=== PATIENT | female | born 1995 | race Caucasian/White ===

== ENCOUNTER 2017-06-05 19:23 | Emergency (ER) | payer SELFPAY ==
[~2017-06-05] VITALS: Ht 154.9 cm; Wt 49.9 kg
[~2017-06-05 19:23] MED LIST: HYDR-3812 PO; NITR-65 PO; PHEN-639 PO; SULF1TAB35 PO
--- OUTSIDE RECORDS SUMMARY | 2017-06-05 19:29 | XMS REPORT ---
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 Info Not Available Non Drug Allergy Problems Problem Type Condition Code Onset Dates Condition Status Problem Anxiety state, unspecified 300.00 Active Assessment Pelvic pain R10.2 Active Problem Adjustment disorder with mixed anxiety and depressed mood 309.28 Active Assessment UTI (urinary tract infection) N39.0 Active Assessment History of UTI Z87.440 Active Assessment Follow up Z09 Active Medications Medication Code System Code Instructions Start Date End Date Status Dosage Ibuprofen [facility] [address]-73 800 MG Orally 2 times a day Sep 16, 2015 1 tablet Ciprofloxacin HCl [facility] [address]-47 250 MG Orally every 12 hrs January 06, 2016 January 16, 2016 1 tablet Procedures Procedure Coding System Code Date Office Visit, Est Pt., Level 3 CPT-4 60765 January 06, 2016 [facility] CPT-4 NOBLL January 06, 2016 URINALYSIS, AUTO, W/O SCOPE CPT-4 62239 January 06, 2016 Vital Signs Date/Time: January 06, 2016 Temperature 98.4 F Weight 107.2 lbs Height 61 in BMI 20.25 Index Blood Pressure Diastolic 72 mmHg Blood Pressure Systolic 107 mmHg Cardiac Monitoring Heart Rate 77 bpm BMIPercentile 33.72 % Wt Percentile 13.09 % Results No Known Results Summary Purpose [employer] Submission
--- OUTSIDE RECORDS SUMMARY | 2017-06-05 19:29 | XMS REPORT ---
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 Info Not Available Non Drug Allergy Problems Problem Type Condition Code Onset Dates Condition Status Problem Anxiety state, unspecified 300.00 Active Assessment Rib pain on right side R07.81 Active Problem Adjustment disorder with mixed anxiety and depressed mood 309.28 Active Medications Medication Code System Code Instructions Start Date End Date Status Dosage Ibuprofen [facility] [address]-00 800 MG Orally 2 times a day Sep 16, 2015 1 tablet Procedures Procedure Coding System Code Date Office Visit, Est Pt., Level 3 CPT-4 98283 Sep 16, 2015 Vital Signs Date/Time: Sep 16, 2015 Temperature 99.0 F Weight 110.4 lbs Height 61 in BMI 20.86 Index Blood Pressure Diastolic 70 mmHg Blood Pressure Systolic 108 mmHg Cardiac Monitoring Heart Rate 63 bpm BMIPercentile 43.05 % Wt Percentile 19.6 % Results No Known Results Summary Purpose [employer] Submission
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
--- OUTSIDE RECORDS SUMMARY | 2017-06-05 19:29 | XMS REPORT ---
Author Author JOSH RILEY [facility] [employer] Address Unknown Phone Unavailable Care Team Providers Care Configuration Analyst Name Role Phone JOSH RILEY CP Unavailable Allergies, Adverse Reactions, Alerts Substance Reaction Event Type N.K.D.A. Info Not Available Non Drug Allergy Problems Problem Type Condition Code Onset Dates Condition Status Problem Cough 786.2 Active Problem Need for other specified prophylactic measure V07.8 Active Problem Diarrhea 787.91 Active Problem examination or test, negative result V72.41 Active Assessment Other mucopurulent conjunctivitis, right eye H10.021 Active Problem Other general counseling and advice [...] Problem Nausea with vomiting 787.01 Active Medications Medication Code System Code Instructions Start Date End Date Status Dosage TobraDex [facility] [address]-73 0.3-0.1 % Ophthalmic every 6 hrs Jun 17, 2015 1 drop into affected eye Procedures Procedure Coding System Code Date Office Visit, Est Pt., Level 3 CPT-4 11011 Jun 17, 2015 Vital Signs Date/Time: Jun 17, 2015 Temperature 98.2 F Weight 113.1 lbs Height 61 in BMI 21.37 Index Blood Pressure Diastolic 60 mmHg Blood Pressure Systolic 110 mmHg Cardiac Monitoring Heart Rate 72 bpm BMIPercentile 50.7 % Wt Percentile 26.1 % Results No Known Results Summary Purpose [employer] Submission
--- OUTSIDE RECORDS SUMMARY | 2017-06-05 19:31 | XMS REPORT | Continuity of Care Document ---
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 09/27/2008 RAJOTTE RETIREMENT CONSULTANT, JANET A 078.10 Warts Unspecified All Sites 09/27/2008 RAJOTTE RETIREMENT CONSULTANT, JANET A 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 09/27/2008 RAJOTTE RETIREMENT CONSULTANT, JANET A 078.10 Warts Unspecified All Sites 09/27/2008 RAJOTTE RETIREMENT CONSULTANT, JANET A 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 09/27/2008 SANDRA RETIREMENT CONSULTANT, CHU R 078.10 Warts Unspecified All Sites 09/27/2008 SANDRA RETIREMENT CONSULTANT, CHU R 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 09/27/2008 ZARAGOZA DO, ALEJANDRA K 078.10 Warts Unspecified All Sites 09/27/2008 ZARAGOZA DO, ALEJANDRA K 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 09/27/2008 ZARAGOZA DO, ALEJANDRA K 078.10 Warts Unspecified All Sites 09/27/2008 ZARAGOZA DO, ALEJANDRA K 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 09/27/2008 ZARAGOZA DO, ALEJANDRA K 078.10 Warts Unspecified All Sites 09/27/2008 ZARAGOZA DO, ALEJANDRA K 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 09/27/2008 WILLIAN FLORES, KEYSHAWN Garcia 078.10 Warts Unspecified All Sites 09/27/2008 WILLIAN FLORES, KEYSHAWN Garcia 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 09/27/2008 WILLIAN FLORES, KEYSHAWN Garcia 078.10 Warts Unspecified All Sites 09/27/2008 KEYSHAWN DORSEY PHD 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 09/27/2008 LUISITOE BRODY JANET A 078.10 Warts Unspecified All Sites 09/27/2008 ESSENCE SKINNER JANET A 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 09/27/2008 KEYSHAWN DORSEY PHD 078.10 Warts Unspecified All Sites 09/27/2008 KEYSHAWN DORSEY PHD 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 09/27/2008 KEYSHAWN DORSEY PHD 078.10 Warts Unspecified All Sites 09/27/2008 KEYSHAWN DORSEY PHD 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 09/27/2008 ZARAGOZA DO, ALEJANDRA K 078.10 Warts Unspecified All Sites 09/27/2008 ZARAGOZA DO ALEJANDRA K 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 09/27/2008 KEYSHAWN DORSEY PHD 078.10 Warts Unspecified All Sites 09/27/2008 KEYSHAWN DORSEY PHD 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 09/27/2008 SANDRA SKINNER, CHU R 078.10 Warts Unspecified All Sites 09/27/2008 SANDRA SKINNER, CHU R 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 09/27/2008 KEYSHAWN DORSEY PHD 078.10 Warts Unspecified All Sites 09/27/2008 KEYSHAWN DORSEY PHD 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 09/27/2008 MARIBEL SKINNER, MIGUE R 078.10 Warts Unspecified All Sites 09/27/2008 MARIBEL SKINNER MIGUE R 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 10/29/2008 372.30 Conjunctivitis Unspecified 10/29/2008 LUISITOE RETIREMENT CONSULTANT, JANET A 372.30 Conjunctivitis Unspecified 10/29/2008 RAJGEORGEE RETIREMENT CONSULTANT, JANET A 372.30 Conjunctivitis Unspecified 10/29/2008 SANDRA BRODY, CHU R 372.30 Conjunctivitis Unspecified 10/29/2008 ZARAGOZA DO, ALEJANDRA K 372.30 Conjunctivitis Unspecified 10/29/2008 ZARAGOZA DO, ALEJANDRA K 372.30 Conjunctivitis Unspecified 10/29/2008 ZARAGOZA DO, ALEJANDRA K 372.30 Conjunctivitis Unspecified 10/29/2008 KEYSHAWN DORSEY PHD 372.30 Conjunctivitis Unspecified 10/29/2008 WILLIAN FLORES, KEYSHAWN Garcia 372.30 Conjunctivitis Unspecified 10/29/2008 ESSENCE SKINNER, JANET A 372.30 Conjunctivitis Unspecified 10/29/2008 WILLIAN FLORES, KEYSHAWN Garcia 372.30 Conjunctivitis Unspecified 10/29/2008 WILLIAN FLORES, KEYSHAWN Garcia 372.30 Conjunctivitis Unspecified 10/29/2008 NIK GARDUNO, ALEJANDRA K 372.30 Conjunctivitis Unspecified 10/29/2008 WILLIAN FLORES, KEYSHAWN Garcia 372.30 Conjunctivitis Unspecified 10/29/2008 SANDRA SKINNER CHU R 372.30 Conjunctivitis Unspecified 10/29/2008 WILLIAN FLORES, KEYSHAWN Garcia 372.30 Conjunctivitis Unspecified 10/29/2008 MIGUE LÓPEZ APRN R 372.30 Conjunctivitis Unspecified 03/19/2009 530.81 ESOPHAGEAL REFLUX 03/19/2009 789.00 Abdominal Pain 03/19/2009 LUISITOE RETIREMENT CONSULTANT, JANET A 530.81 ESOPHAGEAL REFLUX 03/19/2009 LUISITOE RETIREMENT CONSULTANT, JANET A 789.00 Abdominal Pain 03/19/2009 LUISITOE RETIREMENT CONSULTANT, JANET A 530.81 ESOPHAGEAL REFLUX 03/19/2009 DASIAOTTE RETIREMENT CONSULTANT, JANET A 789.00 Abdominal Pain 03/19/2009 SANDRA SKINNER, CHU R 530.81 ESOPHAGEAL REFLUX 03/19/2009 SANDRA SKINNER, CHU R 789.00 Abdominal Pain 03/19/2009 ZARAGOZA DO, ALEJANDRA K 530.81 ESOPHAGEAL REFLUX 03/19/2009 ZARAGOZA DO, ALEJANDRA K 789.00 Abdominal Pain 03/19/2009 ZARAGOZA DO, ALEJANDRA K 530.81 ESOPHAGEAL REFLUX 03/19/2009 ZARAGOZA DO, ALEJANDRA K 789.00 Abdominal Pain 03/19/2009 ZARAGOZA DO, ALEJANDRA K 530.81 ESOPHAGEAL REFLUX 03/19/2009 ZARAGOZA DO, ALEJANDRA K 789.00 Abdominal Pain 03/19/2009 WILLIAN FLORES, KEYSHAWN Garcia 530.81 ESOPHAGEAL REFLUX 03/19/2009 WILLIAN FLORES, KEYSHAWN Garcia 789.00 Abdominal Pain 03/19/2009 WILLIAN FLORES, KEYSHAWN Garcia 530.81 ESOPHAGEAL REFLUX 03/19/2009 WILLIAN FLORES, KEYSHAWN Garcia 789.00 Abdominal Pain 03/19/2009 ESSENCE SKINNER JANET A 530.81 ESOPHAGEAL REFLUX 03/19/2009 ESSENCE SKINNER, JANET A 789.00 Abdominal Pain 03/19/2009 WILLIAN PHD, KEYSHAWN Garcia 530.81 ESOPHAGEAL REFLUX 03/19/2009 WILLIAN PHD, KEYSHAWN Garcia 789.00 Abdominal Pain 03/19/2009 WILLIAN PHD, KEYSHAWN Garcia 530.81 ESOPHAGEAL REFLUX 03/19/2009 WILLIAN PHD, KEYSHAWN Garcia 789.00 Abdominal Pain 03/19/2009 ZARAGOZA DO, ALEJANDRA K 530.81 ESOPHAGEAL REFLUX 03/19/2009 ZARAGOZA DO, ALEJANDRA K 789.00 Abdominal Pain 03/19/2009 WILLIAN PHD, KEYSHAWN Garcia 530.81 ESOPHAGEAL REFLUX 03/19/2009 WILLIAN PHD, KEYSHAWN Garcia 789.00 Abdominal Pain 03/19/2009 SANDRA SKINNER, CHU R 530.81 ESOPHAGEAL REFLUX 03/19/2009 SANDRA SKINNER CHU R 789.00 Abdominal Pain 03/19/2009 WILLIAN PHD, KEYSHAWN Garcia 530.81 ESOPHAGEAL REFLUX 03/19/2009 WILLIAN PHD, KEYSHAWN Garcia 789.00 Abdominal Pain 03/19/2009 DESTIN LÓPEZ APRNRICIA R 530.81 ESOPHAGEAL REFLUX 03/19/2009 MARIBEL SKINNER MIGUE R 789.00 Abdominal Pain 03/25/2009 787.01 Nausea With Vomiting 03/25/2009 V05.3 Need For Vaccination Hepatitis A 03/25/2009 V05.4 Need For Vaccination Chickenpox (active) 03/25/2009 V05.8 Gardasil, Shingles, Other Specified Disease 03/25/2009 V06.5 Vaccines Prophylactic Need Against Td 03/25/2009 V20.2 Visit For: Well Child Visit 03/25/2009 AJNET LOWRY APRN 787.01 Nausea With Vomiting 03/25/2009 TONYA LOWRY APRNYL A V05.3 Need For Vaccination Hepatitis A 03/25/2009 TONYA LOWRY APRNYL A V05.4 Need For Vaccination Chickenpox (active ) 03/25/2009 TONYA LOWRY APRNYL A V05.8 Gardasil, Shingles, Other Specified Disease 03/25/2009 TONYA LOWRY APRNYL A V06.5 Vaccines Prophylactic Need Against Td 03/25/2009 TONYA LOWRY APRNYL A V20.2 Visit For: Well Child Visit 03/25/2009 RAJOTTE RETIREMENT CONSULTANT, JANET A 787.01 Nausea With Vomiting 03/25/2009 DASIAOTTE RETIREMENT CONSULTANT, JANET A V05.3 Need For Vaccination Hepatitis A 03/25/2009 DAISAOTTE RETIREMENT CONSULTANT, JANET A V05.4 Need For Vaccination Chickenpox (active ) 03/25/2009 DASIAOTTE RETIREMENT CONSULTANT, JANET A V05.8 Gardasil, Shingles, Other Specified Disease 03/25/2009 LUISITOE RETIREMENT CONSULTANT, JANET A V06.5 Vaccines Prophylactic Need Against Td 03/25/2009 DASIAOTTE RETIREMENT CONSULTANT, JANET A V20.2 Visit For: Well Child Visit 03/25/2009 SANDRA RETIREMENT CONSULTANT, CHU R 787.01 Nausea With Vomiting 03/25/2009 SANDRA RETIREMENT CONSULTANT, CHU R V05.3 Need For Vaccination Hepatitis A 03/25/2009 SANDRA RETIREMENT CONSULTANT, CHU R V05.4 Need For Vaccination Chickenpox (active) 03/25/2009 SANDRA RETIREMENT CONSULTANT, CHU R V05.8 Gardasil, Shingles, Other Specified Disease 03/25/2009 SANDRA RETIREMENT CONSULTANT, CHU R V06.5 Vaccines Prophylactic Need Against Td 03/25/2009 SANDRA RETIREMENT CONSULTANT, CHU R V20.2 Visit For: Well Child Visit 03/25/2009 ZULY ZARAGOZA DOA K 787.01 Nausea With Vomiting 03/25/2009 ZARAGOZA DO, ALEJANDRA K V05.3 Need For Vaccination Hepatitis A 03/25/2009 ZARAGOZA DO, ALEJANDRA K V05.4 Need For Vaccination Chickenpox (active) 03/25/2009 ZARAGOZA DO, ALEJANDRA K V05.8 Gardasil, Shingles, Other Specified Disease 03/25/2009 ZARAGOZA DO, ALEJANDRA K V06.5 Vaccines Prophylactic Need Against Td 03/25/2009 ZARAGOZA DO, ALEJANDRA K V20.2 Visit For: Well Child Visit 03/25/2009 NIK DO ALEJANDRA K 787.01 Nausea With Vomiting 03/25/2009 ZARAGOZA DO, ALEJANDRA K V05.3 Need For Vaccination Hepatitis A 03/25/2009 ZARAGOZA DO, ALEJANDRA K V05.4 Need For Vaccination Chickenpox (active) 03/25/2009 ZARAGOZA DO, ALEJANDRA K V05.8 Gardasil, Shingles, Other Specified Disease 03/25/2009 ZARAGOZA DO, ALEJANDRA K V06.5 Vaccines Prophylactic Need Against Td 03/25/2009 ZARAGOZA DO, ALEJANDRA K V20.2 Visit For: Well Child Visit 03/25/2009 ZARAGOZA DO, ALEJANDRA K 787.01 Nausea With Vomiting 03/25/2009 ZARAGOZA DO, ALEJANDRA K V05.3 Need For Vaccination Hepatitis A 03/25/2009 ZARAGOZA DO, ALEJANDRA K V05.4 Need For Vaccination Chickenpox (active) 03/25/2009 ZARAGOZA DO, ALEJANDRA K V05.8 Gardasil, Shingles, Other Specified Disease 03/25/2009 ZARAGOZA DO, ALEJANDRA K V06.5 Vaccines Prophylactic Need Against Td 03/25/2009 ZARAGOZA DO, ALEJANDRA K V20.2 Visit For: Well Child Visit 03/25/2009 KEYSHAWN DORSEY PHD 787.01 Nausea With Vomiting 03/25/2009 KEYSHAWN DORSEY PHD V05.3 Need For Vaccination Hepatitis A 03/25/2009 KEYSHAWN DORSEY PHD V05.4 Need For Vaccination Chickenpox (active ) 03/25/2009 KEYSHAWN DORSEY PHD V05.8 Gardasil, Shingles, Other Specified Disease 03/25/2009 KEYSHAWN DORSEY PHD V06.5 Vaccines Prophylactic Need Against Td 03/25/2009 KEYSHAWN DORSEY PHD V20.2 Visit For: Well Child Visit 03/25/2009 KEYSHAWN DORSEY PHD 787.01 Nausea With Vomiting 03/25/2009 KEYSHAWN DORSEY PHD V05.3 Need For Vaccination Hepatitis A 03/25/2009 KEYSHAWN DORSEY PHD V05.4 Need For Vaccination Chickenpox (active ) 03/25/2009 KEYSHAWN DORSEY PHD V05.8 Gardasil, Shingles, Other Specified Disease 03/25/2009 KEYSHAWN DORSEY PHD V06.5 Vaccines Prophylactic Need Against Td 03/25/2009 KEYSHAWN DORSEY PHD V20.2 Visit For: Well Child Visit 03/25/2009 JANET LOWRY APRN 787.01 Nausea With Vomiting 03/25/2009 JANET LOWRY APRN V05.3 Need For Vaccination Hepatitis A 03/25/2009 TONYA LOWRY APRNYL A V05.4 Need For Vaccination Chickenpox (active ) 03/25/2009 RAJOTTE RETIREMENT CONSULTANT, JANET A V05.8 Gardasil, Shingles, Other Specified Disease 03/25/2009 TONYA LOWRY APRNYL A V06.5 Vaccines Prophylactic Need Against Td 03/25/2009 TONYA LOWRY APRNYL A V20.2 Visit For: Well Child Visit 03/25/2009 KEYSHAWN DORSEY PHD 787.01 Nausea With Vomiting 03/25/2009 KEYSHAWN DORSEY PHD V05.3 Need For Vaccination Hepatitis A 03/25/2009 KEYSHAWN DORSEY PHD V05.4 Need For Vaccination Chickenpox (active ) 03/25/2009 KEYSHAWN DORSEY PHD V05.8 Gardasil, Shingles, Other Specified Disease 03/25/2009 KEYSHAWN DORSEY PHD V06.5 Vaccines Prophylactic Need Against Td 03/25/2009 KEYSHAWN DORSEY PHD V20.2 Visit For: Well Child Visit 03/25/2009 KEYSHAWN DORSEY PHD 787.01 Nausea With Vomiting 03/25/2009 KEYSHAWN DORSEY PHD V05.3 Need For Vaccination Hepatitis A 03/25/2009 KEYSHAWN DORSEY PHD V05.4 Need For Vaccination Chickenpox (active ) 03/25/2009 KEYSHAWN DORSEY PHD V05.8 Gardasil, Shingles, Other Specified Disease 03/25/2009 KEYSHAWN DORSEY PHD V06.5 Vaccines Prophylactic Need Against Td 03/25/2009 KEYSHAWN DORSEY PHD V20.2 Visit For: Well Child Visit 03/25/2009 ALEJANDRA ZARAGOZA DO 787.01 Nausea With Vomiting 03/25/2009 NIK GARDUNO ALEJANDRA K V05.3 Need For Vaccination Hepatitis A 03/25/2009 NIK GARDUNO ALEJANDRA K V05.4 Need For Vaccination Chickenpox (active) 03/25/2009 NIK GARDUNO ALEJANDRA K V05.8 Gardasil, Shingles, Other Specified Disease 03/25/2009 NIK GARDUNO ALEJANDRA K V06.5 Vaccines Prophylactic Need Against Td 03/25/2009 NIK GARDUNO ALEJANDRA K V20.2 Visit For: Well Child Visit 03/25/2009 KEYSHAWN DORSEY PHD 787.01 Nausea With Vomiting 03/25/2009 KEYSHAWN DORSEY PHD V05.3 Need For Vaccination Hepatitis A 03/25/2009 KEYSHAWN DORSEY PHD V05.4 Need For Vaccination Chickenpox (active ) 03/25/2009 KEYSHAWN DORSEY PHD V05.8 Gardasil, Shingles, Other Specified Disease 03/25/2009 KEYSHAWN DORSEY PHD V06.5 Vaccines Prophylactic Need Against Td 03/25/2009 KEYSHAWN DORSEY PHD V20.2 Visit For: Well Child Visit 03/25/2009 SANDRA RETIREMENT CONSULTANT, CHU R 787.01 Nausea With Vomiting 03/25/2009 SANDRA CORREAN, CHU R V05.3 Need For Vaccination Hepatitis A 03/25/2009 SANDRA CORREAN, CHU R V05.4 Need For Vaccination Chickenpox (active) 03/25/2009 SANDRA SKINNER CHU R V05.8 Gardasil, Shingles, Other Specified Disease 03/25/2009 SANDRA SKINNER CHU R V06.5 Vaccines Prophylactic Need Against Td 03/25/2009 SANDRA SKINNER CHU R V20.2 Visit For: Well Child Visit 03/25/2009 KEYSHAWN DORSEY PHD 787.01 Nausea With Vomiting 03/25/2009 KEYSHAWN DORSEY PHD V05.3 Need For Vaccination Hepatitis A 03/25/2009 KYESHAWN DORSEY PHD V05.4 Need For Vaccination Chickenpox (active ) 03/25/2009 KEYSHAWN DORSEY PHD V05.8 Gardasil, Shingles, Other Specified Disease 03/25/2009 KEYSHAWN DORSEY PHD V06.5 Vaccines Prophylactic Need Against Td 03/25/2009 KEYSHAWN DORSEY PHD V20.2 Visit For: Well Child Visit 03/25/2009 MIGUE LÓPEZ APRN R 787.01 Nausea With Vomiting 03/25/2009 MIGUE LÓPEZ APRN R V05.3 Need For Vaccination Hepatitis A 03/25/2009 DESTIN LÓPEZ APRNRICIA R V05.4 Need For Vaccination Chickenpox ( active) 03/25/2009 MIGUE LÓPEZ APRN R V05.8 Gardasil, Shingles, Other Specified Disease 03/25/2009 KIRILL LÓPEZ APRNIA R V06.5 Vaccines Prophylactic Need Against Td 03/25/2009 KIRILL LÓPEZ APRNIA R V20.2 Visit For: Well Child Visit 12/18/2009 692.6 Contact Dermatitis Due To Plants Poison Rosa Maria 12/18/2009 LUISITOE RETIREMENT CONSULTANT, JANET A 692.6 Contact Dermatitis Due To Plants Poison Rosa Maria 12/18/2009 LUISITOE RETIREMENT CONSULTANT, JANET A 692.6 Contact Dermatitis Due To Plants Poison Rosa Maria 12/18/2009 SANDRA CORREAN, CHU R 692.6 Contact Dermatitis Due To Plants Poison Rosa Maria 12/18/2009 ZARAGOZA DO, ALEJANDRA K 692.6 Contact Dermatitis Due To Plants Poison Rosa Maria 12/18/2009 ZARAGOZA DO, ALEJANDRA K 692.6 Contact Dermatitis Due To Plants Poison Rosa Maria 12/18/2009 ZARAGOZA DO, ALEJANDRA K 692.6 Contact Dermatitis Due To Plants Poison Rosa Maria 12/18/2009 WILLIAN FLORES, KEYSHAWN Garcia 692.6 Contact Dermatitis Due To Plants Poison Rosa Maria 12/18/2009 WILLIAN FLORES, KEYSHAWN Garcia 692.6 Contact Dermatitis Due To Plants Poison Rosa Maria 12/18/2009 ESSENCE SKINNER, JANET A 692.6 Contact Dermatitis Due To Plants Poison Rosa Maria 12/18/2009 WILLIAN FLORES, KEYSHAWN [employer] 692.6 Contact Dermatitis Due To Plants Poison Rosa Maria 12/18/2009 WILLIAN FLORES, KEYSHAWN Garcia 692.6 Contact Dermatitis Due To Plants Poison Rosa Maria 12/18/2009 ZARAGOZA DO, ALEJANDRA K 692.6 Contact Dermatitis Due To Plants Poison Rosa Maria 12/18/2009 WILLIAN FLORES, KEYSHAWN Garcia 692.6 Contact Dermatitis Due To Plants Poison Rosa Maria 12/18/2009 SANDRA CORREAN, CHU R 692.6 Contact Dermatitis Due To Plants Poison Rosa Maria 12/18/2009 WILLIAN FLORES, KEYSHAWN Garcia 692.6 Contact Dermatitis Due To Plants Poison Rosa Maria 12/18/2009 MIGUE LÓPEZ APRN R 692.6 Contact Dermatitis Due To Plants Poison Rosa Maria 06/05/2010 683 Acute Lymphadenitis 06/05/2010 LUISITOE RETIREMENT CONSULTANT, JANET A 683 Acute Lymphadenitis 06/05/2010 LUISITOE RETIREMENT CONSULTANT, JANET A 683 Acute Lymphadenitis 06/05/2010 SANDRA CORREAN, CHU R 683 Acute Lymphadenitis 06/05/2010 ZARAGOZA DO, ALEJANDRA K 683 Acute Lymphadenitis 06/05/2010 ZARAGOZA DO, ALEJANDRA K 683 Acute Lymphadenitis 06/05/2010 ZARAGOZA DO, ALEJANDRA K 683 Acute Lymphadenitis 06/05/2010 WILLIAN PHD, KEYSHAWN Garcia 683 Acute Lymphadenitis 06/05/2010 WILLIAN PHD, KEYSHAWN Garcia 683 Acute Lymphadenitis 06/05/2010 RAJOTTE RETIREMENT CONSULTANT, JANET A 683 Acute Lymphadenitis 06/05/2010 WILLIAN PHD, KEYSHAWN Garcia 683 Acute Lymphadenitis 06/05/2010 WILLIAN PHD, KEYSHAWN Garcia 683 Acute Lymphadenitis 06/05/2010 NIK DO, ALEJANDRA K 683 Acute Lymphadenitis 06/05/2010 WILLIAN PHD, KEYSHAWN Garcia 683 Acute Lymphadenitis 06/05/2010 SANDRA RETIREMENT CONSULTANT, CHU R 683 Acute Lymphadenitis 06/05/2010 WILLIAN PHD, KEYSHAWN Garcia 683 Acute Lymphadenitis 06/05/2010 LÓPEZ RETIREMENT CONSULTANT, MIGUE R 683 Acute Lymphadenitis 09/16/2010 724.2 Lumbago 09/16/2010 959.9 Other And Unspecified Injury To Unspecified Site 09/16/2010 RAJOTTE RETIREMENT CONSULTANT, JANET A 724.2 Lumbago 09/16/2010 RAJOTTE RETIREMENT CONSULTANT, JANET A 959.9 Other And Unspecified Injury To Unspecified Site 09/16/2010 RAJOTTE RETIREMENT CONSULTANT, JANET A 724.2 Lumbago 09/16/2010 RAJOTTE RETIREMENT CONSULTANT, JANET A 959.9 Other And Unspecified Injury To Unspecified Site 09/16/2010 SANDRA RETIREMENT CONSULTANT, CHU R 724.2 Lumbago 09/16/2010 SANDRA RETIREMENT CONSULTANT, CHU R 959.9 Other And Unspecified Injury To Unspecified Site 09/16/2010 ZARAGOZA DO, ALEJANDRA K 724.2 Lumbago 09/16/2010 ZARAGOZA DO, ALEJANDRA K 959.9 Other And Unspecified Injury To Unspecified Site 09/16/2010 ZARAGOZA DO, ALEJANDRA K 724.2 Lumbago 09/16/2010 ZARAGOZA DO, ALEJANDRA K 959.9 Other And Unspecified Injury To Unspecified Site 09/16/2010 ZARAGOZA DO, ALEJANDRA K 724.2 Lumbago 09/16/2010 ZARAGOZA DO, ALEJANDRA K 959.9 Other And Unspecified Injury To Unspecified Site 09/16/2010 WILLIAN FLORES, KEYSHAWN Garcia 724.2 Lumbago 09/16/2010 WILLIAN FLORES, KEYSHAWN Garcia 959.9 Other And Unspecified Injury To Unspecified Site 09/16/2010 KEYSHAWN DORSEY PHD 724.2 Lumbago 09/16/2010 KEYSHAWN DORSEY PHD 959.9 Other And Unspecified Injury To Unspecified Site 09/16/2010 RAJGEORGEE RETIREMENT CONSULTANT, JANET A 724.2 Lumbago 09/16/2010 RAJGEORGEE BRODY JANET A 959.9 Other And Unspecified Injury To Unspecified Site 09/16/2010 KEYSHAWN DORSEY PHD 724.2 Lumbago 09/16/2010 KEYSHAWN DORSEY PHD 959.9 Other And Unspecified Injury To Unspecified Site 09/16/2010 KEYSHAWN DORSEY PHD 724.2 Lumbago 09/16/2010 KEYSHAWN DORSEY PHD 959.9 Other And Unspecified Injury To Unspecified Site 09/16/2010 ZARAGOZA DO ALEJANDRA K 724.2 Lumbago 09/16/2010 ZARAGOZA DO ALEJANDRA K 959.9 Other And Unspecified Injury To Unspecified Site 09/16/2010 KEYSHAWN DORSEY PHD 724.2 Lumbago 09/16/2010 KEYSHAWN DORSEY PHD 959.9 Other And Unspecified Injury To Unspecified Site 09/16/2010 SANDRA SKINNER CHU R 724.2 Lumbago 09/16/2010 SANDRA SKINNER CHU R 959.9 Other And Unspecified Injury To Unspecified Site 09/16/2010 KEYSHAWN DORSEY PHD 724.2 Lumbago 09/16/2010 KEYSHAWN DORSEY PHD 959.9 Other And Unspecified Injury To Unspecified Site 09/16/2010 KIRILL LÓPEZ APRNIA R 724.2 Lumbago 09/16/2010 KIRILL LÓPEZ APRNIA R 959.9 Other And Unspecified Injury To Unspecified Site 03/05/2011 922.1 Contusion Of Chest Wall 03/05/2011 LUISITOE RETIREMENT CONSULTANT, JANET A 922.1 Contusion Of Chest Wall 03/05/2011 RAJGEORGEE RETIREMENT CONSULTANT, JANET A 922.1 Contusion Of Chest Wall 03/05/2011 SANDRA BRODY, CHU R 922.1 Contusion Of Chest Wall 03/05/2011 ZARAGOZA DO, ALEJANDRA K 922.1 Contusion Of Chest Wall 03/05/2011 ZARAGOZA DO, ALEJANDRA K 922.1 Contusion Of Chest Wall 03/05/2011 ZARAGOZA DO, ALEJANDRA K 922.1 Contusion Of Chest Wall 03/05/2011 KEYSHAWN DORSEY PHD 922.1 Contusion Of Chest Wall 03/05/2011 KEYSHAWN DORSEY PHD 922.1 Contusion Of Chest Wall 03/05/2011 TONYA LOWRY APRNYL A 922.1 Contusion Of Chest Wall 03/05/2011 KEYSHAWN DORSEY PHD 922.1 Contusion Of Chest Wall 03/05/2011 KEYSHAWN DORSEY PHD 922.1 Contusion Of Chest Wall 03/05/2011 ALEJANDRA ZARAGOZA DO K 922.1 Contusion Of Chest Wall 03/05/2011 KEYSHAWN DORSEY PHD 922.1 Contusion Of Chest Wall 03/05/2011 CHU FLORES APRN R 922.1 Contusion Of Chest Wall 03/05/2011 KEYSHAWN DORSEY PHD 922.1 Contusion Of Chest Wall 03/05/2011 MIGUE LÓPEZ APRN 922.1 Contusion Of Chest Wall 04/27/2011 V01.79 Contact With Or Exposure To Other Viral Diseases 04/27/2011 TONYA LOWRY APRNYL A V01.79 Contact With Or Exposure To Other Viral Diseases 04/27/2011 TONYA LOWRY APRNYL A V01.79 Contact With Or Exposure To Other Viral Diseases 04/27/2011 TITUS FLORES APRNINA R V01.79 Contact With Or Exposure To Other Viral Diseases 04/27/2011 ZARAGOZA DO, ALEJANDRA K V01.79 Contact With Or Exposure To Other Viral Diseases 04/27/2011 ZARAGOZA DO, ALEJANDRA K V01.79 Contact With Or Exposure To Other Viral Diseases 04/27/2011 ZARAGOZA DO, ALEJANDRA K V01.79 Contact With Or Exposure To Other Viral Diseases 04/27/2011 KEYSHAWN DORSEY PHD V01.79 Contact With Or Exposure To Other Viral Diseases 04/27/2011 KEYSHAWN DORSEY PHD V01.79 Contact With Or Exposure To Other Viral Diseases 04/27/2011 JANET LOWRY APRN A V01.79 Contact With Or Exposure To Other Viral Diseases 04/27/2011 KEYSHAWN DORSEY PHD V01.79 Contact With Or Exposure To Other Viral Diseases 04/27/2011 KEYSHAWN DORSEY PHD V01.79 Contact With Or Exposure To Other Viral Diseases 04/27/2011 ZARAGOZA DO ALEJANDRA K V01.79 Contact With Or Exposure To Other Viral Diseases 04/27/2011 KEYSHAWN DORSEY PHD V01.79 Contact With Or Exposure To Other Viral Diseases 04/27/2011 CHU FLORES APRN R V01.79 Contact With Or Exposure To Other Viral Diseases 04/27/2011 KEYSHAWN DORSEY PHD V01.79 Contact With Or Exposure To Other Viral Diseases 04/27/2011 MIGUE LÓPEZ APRN R V01.79 Contact With Or Exposure To Other Viral Diseases 07/05/2011 923.3 Contusion Of Finger 07/05/2011 TONYA LOWRY APRNYL A 923.3 Contusion Of Finger 07/05/2011 TONYA LOWRY APRNYL A 923.3 Contusion Of Finger 07/05/2011 TITUS FLORES APRNINA R 923.3 Contusion Of Finger 07/05/2011 ZARAGOZA DO, ALEJANDRA K 923.3 Contusion Of Finger 07/05/2011 ZARAGOZA DO, ALEJANDRA K 923.3 Contusion Of Finger 07/05/2011 ZARAGOZA DO, ALEJANDRA K 923.3 Contusion Of Finger 07/05/2011 KEYSHAWN DORSEY PHD 923.3 Contusion Of Finger 07/05/2011 KEYSHAWN DORSEY PHD 923.3 Contusion Of Finger 07/05/2011 TONYA LOWRY APRNYL A 923.3 Contusion Of Finger 07/05/2011 KEYSHAWN DORSEY PHD 923.3 Contusion Of Finger 07/05/2011 KEYSHAWN DORSEY PHD 923.3 Contusion Of Finger 07/05/2011 ZARAGOZA DO, ALEJANDRA K 923.3 Contusion Of Finger 07/05/2011 KEYSHAWN DORSEY PHD 923.3 Contusion Of Finger 07/05/2011 TITUS FLORES APRNINA R 923.3 Contusion Of Finger 07/05/2011 KEYSHAWN DORSEY PHD 923.3 Contusion Of Finger 07/05/2011 MIGUE LÓPEZ APRN R 923.3 Contusion Of Finger 07/26/2011 462 Pharyngitis Acute 07/26/2011 466.0 Bronchitis, Acute 07/26/2011 RAJOTTE RETIREMENT CONSULTANT, JANET A 462 Pharyngitis Acute 07/26/2011 RAJOTTE RETIREMENT CONSULTANT, JANET A 466.0 Bronchitis, Acute 07/26/2011 RAJOTTE RETIREMENT CONSULTANT, JANET A 462 Pharyngitis Acute 07/26/2011 RAJOTTE RETIREMENT CONSULTANT, JANET A 466.0 Bronchitis, Acute 07/26/2011 SANDRA RETIREMENT CONSULTANT, CHU R 462 Pharyngitis Acute 07/26/2011 SANDRA RETIREMENT CONSULTANT, CHU R 466.0 Bronchitis, Acute 07/26/2011 ZARAGOZA DO, ALEJANDRA K 462 Pharyngitis Acute 07/26/2011 ZARAGOZA DO, ALEJANDRA K 466.0 Bronchitis, Acute 07/26/2011 ZARAGOZA DO, ALEJANDRA K 462 Pharyngitis Acute 07/26/2011 ZARAGOZA DO, ALEJANDRA K 466.0 Bronchitis, Acute 07/26/2011 ZARAGOZA DO, ALEJANDRA K 462 Pharyngitis Acute 07/26/2011 ZARAGOZA DO, ALEJANDRA K 466.0 Bronchitis, Acute 07/26/2011 WILLIAN FLORES, KEYSHAWN Garcia 462 Pharyngitis Acute 07/26/2011 WILLIAN FLORES, KEYSHAWN Garcia 466.0 Bronchitis, Acute 07/26/2011 WILLIAN FLORES, KEYSHAWN Garcia 462 Pharyngitis Acute 07/26/2011 WILLIAN FLORES, KEYSHAWN Garcia 466.0 Bronchitis, Acute 07/26/2011 RAJOTTE RETIREMENT CONSULTANT, JANET A 462 Pharyngitis Acute 07/26/2011 RAJOTTE RETIREMENT CONSULTANT, JANET A 466.0 Bronchitis, Acute 07/26/2011 WILLIAN PHD, KEYSHAWN Garcia 462 Pharyngitis Acute 07/26/2011 WILLIAN PHD, KEYSHAWN Garcia 466.0 Bronchitis, Acute 07/26/2011 WILLIAN PHD, KEYSHAWN Garcia 462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
[2017-06-05 19:51] LABS: BILIRUBIN,URINE NEGATIVE (NEGATIVE); KETONES,URINE NEGATIVE (NEGATIVE); LEUKOCYTE ESTERASE ,URINE 1+ (NEGATIVE); NITRITE,URINE NEGATIVE (NEGATIVE); PH,URINE 6.5 (5-9); PROTEIN,URINE NEGATIVE (NEGATIVE); UROBILINOGEN,URINE NORMAL (NORMAL)
[2017-06-05 20:01] LABS: SQUAMOUS EPITHELIAL CELL,UR 25-50 /HPF
--- NOTE | 2017-06-05 20:09 | ED Abdominal Pain ---
General Chief Complaint: Abdominal/GI Problems Stated Complaint: AB PAIN Nursing Triage Note: Pt. advises abdominal pain that began earlier this evening and has since then not improved. She advises vomiting x 1. She denies nausea at this time. Sepsis Screen: No Definite Risk Source of Information: Patient Exam Limitations: No Limitations History of Present Illness Time Seen By Provider: 19:55 Initial Comments Here with report of lower abdominal pain bilaterally as well as some left upper quadrant abdominal pain. This is been intermittent over the last 3 months. Apparently she has had one episode of vomiting. Pain seems to come ago on its own and she is currently not having any pain at all. It does not seem to be better or worse with food. She reports no exacerbating or relieving factors other than time. Timing/Duration: Gone Now, Intermittent Severity/Quality: Moderate, Aching Location: LUQ, RLQ, LLQ Radiation: No Radiation Activities at Onset: None Modifying Factors: Improves With Resting Associated Symptoms: No Back Pain, No Chest Pain, No Fever/Chills, No Fatigue, Nausea/Vomiting, No Swelling/Mass in Abdomen, No Weakness Allergies and Home Medications Allergies Coded Allergies: NKANo Known Allergies (Verified Allergy, Unknown, 06/05/17) Home Medications Hydrocodone/Acetaminophen 1 Each Tablet, 1 EACH PO Q6H PRN for PAIN, #10 Prescribed by: DARYN MCGREGOR on 02/23/16 0238 Nitrofurantoin Monohyd/M-Cryst 100 Mg Capsule, 1 TAB PO BID, #14 Ref 0 Prescribed by: JONEL LUNDBERG on 06/22/15 1735 Phenazopyridine HCl 100 Mg Tablet, 100 MG PO Q8H PRN for SPASMS, #14 Ref 1 Prescribed by: JONEL LUNDBERG on 06/22/15 1735 Sulfamethoxazole/Trimethoprim 1 Each Tablet, 1 EACH PO BID, #6 Prescribed by: CONCHIS HOLCOMB on 12/23/15 1638 Review of Systems Constitutional: see HPI, No chills, No weakness EENTM: No Symptoms Reported Respiratory: No Symptoms Reported Cardiovascular: No Symptoms Reported Gastrointestinal: See HPI, Abdominal Pain, Denies Diarrhea, Nausea Genitourinary: No Symptoms Reported Musculoskeletal: no symptoms reported Skin: no symptoms reported Psychiatric/Neurological: No Symptoms Reported All Other Systems Reviewed Negative Unless Noted: Yes Past Eqzbrxv-Dwwcwn-Wjgjhc Hx Patient Social History Alcohol Use: Denies Use Recreational Drug Use: No Smoking Status: Never a Smoker Recent Foreign Travel: No Contact w/Someone Who Travel: No Recent Infectious Disease Expo: No Physical Abuse: No Sexual Abuse: No Surgeries History of Surgeries: Yes (broken right arm, URETHRAL STRETCH ) Surgeries: Orthopedic Respiratory History of Respiratory Disorde: No Cardiovascular History of Cardiac Disorders: No Neurological History of Neurological Disord: No Reproductive System : No Hx Reproductive Disorders: No Female Reproductive Disorders: Denies Genitourinary History of Genitourinary Disor: Yes (UTI's) Gastrointestinal History of Gastrointestinal Di: No Musculoskeletal History of Musculoskeletal Dis: No Endocrine History of Endocrine Disorders: No Cancer History of Cancer: No Psychosocial History of Psychiatric Problem: No Suicide Risk Score: 0 Blood Transfusions History of Blood Disorders: No Reviewed Nursing Assessment Reviewed/Agree w Nursing PMH: Yes Family Medical History Significant Family History: No Pertinent Family Hx Physical Exam Vital Signs VS - Last 72 Hours, by Label 06/05/17 19:41 Temp 98.6 Pulse 73 Resp 14 B/P (MAP) 112/86 Pulse Ox 98 O2 Delivery Room Air Capillary Refill : Less Than 3 Seconds General Appearance: WD/WN, no apparent distress HEENT: PERRL/EOMI, pharynx normal Neck: full range of motion, supple Respiratory: lungs clear, normal breath sounds Cardiovascular: regular rate, rhythm, no murmur Gastrointestinal: non tender, soft, abnormal bowel sounds (increase activity) Extremities: non-tender, normal inspection Back: normal inspection, no CVA tenderness, no vertebral tenderness Neurologic/Psychiatric: alert, normal mood/affect, oriented x 3 Skin: normal color, warm/dry Progress/Results/Core Measures Results/Orders Lab Results Laboratory Tests Test 06/05/17 19:34 06/05/17 20:26 Range/Units Urine Color YELLOW Urine Clarity CLEAR Urine pH 6.5 5-9 Urine Specific Allison 1.020 1.016-1.022 Urine Protein NEGATIVE NEGATIVE Urine Glucose (UA) NEGATIVE NEGATIVE Urine Ketones NEGATIVE NEGATIVE Urine Nitrite NEGATIVE NEGATIVE Urine Bilirubin NEGATIVE NEGATIVE Urine Urobilinogen NORMAL NORMAL MG/DL Urine Leukocyte Esterase 1+ H NEGATIVE Urine RBC (Auto) NEGATIVE NEGATIVE Urine RBC NONE /HPF Urine WBC 2-5 /HPF Urine Squamous Epithelial Cells 25-50 H /HPF Urine Crystals NONE /LPF Urine Bacteria NONE /HPF Urine Casts NONE /LPF Urine Mucus NEGATIVE /LPF Urine Culture Indicated NO White Blood Count 9.0 4.3-11.0 10^3/uL Red Blood Count 4.74 4.35-5.85 10^6/uL Hemoglobin 14.0 11.5-16.0 G/DL Hematocrit 42 35-52 % Mean Corpuscular Volume 89 80-99 FL Mean Corpuscular Hemoglobin 30 25-34 PG Mean Corpuscular Hemoglobin Concent 33 32-36 G/DL Red Cell Distribution Width 13.4 10.0-14.5 % Platelet Count 211 130-400 10^3/uL Mean Platelet Volume 10.3 7.4-10.4 FL Neutrophils (%) (Auto) 72 42-75 % Lymphocytes (%) (Auto) 20 12-44 % Monocytes (%) (Auto) 7 0-12 % Eosinophils (%) (Auto) 1 0-10 % Basophils (%) (Auto) 0 0-10 % Neutrophils # (Auto) 6.5 1.8-7.8 X 10^3 Lymphocytes # (Auto) 1.8 1.0-4.0 X 10^3 Monocytes # (Auto) 0.6 0.0-1.0 X 10^3 Eosinophils # (Auto) 0.1 0.0-0.3 10^3/uL Basophils # (Auto) 0.0 0.0-0.1 10^3/uL Sodium Level 138 135-145 MMOL/L Potassium Level 4.2 3.6-5.0 MMOL/L Chloride Level 106 98-107 MMOL/L Carbon Dioxide Level 19 L 21-32 MMOL/L Anion Gap 13 5-14 MMOL/L Blood Urea Nitrogen 14 7-18 MG/DL Creatinine 0.78 0.60-1.30 MG/DL Estimat Glomerular Filtration Rate > 60 BUN/Creatinine Ratio 18 Glucose Level 93 70-105 MG/DL Calcium Level 9.5 8.5-10.1 MG/DL Total Bilirubin 0.6 0.1-1.0 MG/DL Aspartate Amino Transf (AST/SGOT) 24 5-34 U/L Alanine Aminotransferase (ALT/SGPT) 15 0-55 U/L Alkaline Phosphatase 70 40-136 U/L Total Protein 8.1 6.4-8.2 GM/DL Albumin 4.4 3.2-4.5 GM/DL Amylase Level 28 25-125 U/L Lipase 19 8-78 U/L My Orders Orders - DENIZ ROQUE MD Ua Culture If Indicated (06/05/17 19:45) Urine Bedside (06/05/17 19:45) Amylase (06/05/17 20:04) Cbc With Automated Diff (06/05/17 20:04) Comprehensive Metabolic Panel (06/05/17 20:04) Lipase (06/05/17 20:04) Saline Lock/Iv-Start (06/05/17 20:04) Hyoscyamine Sl Tablet (Levsin Sl Tablet) (06/05/17 20:55) Medications Given in ED Current Medications Medications Dose Ordered Sig/Blake Route Start Time Stop Time Status Last Admin Dose Admin Hyoscyamine Sulfate 0.125 mg STK-MED ONCE .ROUTE 06/05/17 20:55 06/05/17 21:03 DC 06/05/17 21:04 0.125 MG Vital Signs/I&O Vital Sign - Last 12Hours 06/05/17 19:41 Temp 98.6 Pulse 73 Resp 14 B/P (MAP) 112/86 Pulse Ox 98 O2 Delivery Room Air Blood Pressure Mean: 95 Point of Care Testing Urine -Bedside: Negative Progress Note : Progress Note Seen and evaluated. IV, labs and UA ordered. Less than 0.125 mg by mouth. IV in anticipation of possible CT depending on labs. Unable to get IV but labs were drawn. Monitor patient. 2114: No acute findings. Patient remains pain free. Discharged home with return precautions. Patient verbalize understanding instructions and agreement with plan. Counseled on the need to have a primary care physician. Patient verbalize understanding. Departure Impression Impression: Primary Impression: Generalized abdominal pain Disposition: 01 HOME, SELF-CARE Condition: Improved Departure-Patient Inst. Decision time for Depature: 21:18 Referrals: NO,LOCAL PHYSICIAN (PCP/Family) Primary Care Physician Patient Instructions: Acute Abdomen (Belly Pain), Adult (DC), Irritable Bowel Syndrome (DC) Add. Discharge Instructions: All discharge instructions reviewed with patient and/or family. Voiced understanding. Take medications as directed. Follow up with your Dr. in a few days for recheck. Drink plenty of fluids. Eat a light diet. Return for worse pain, fever, vomiting, blood in your vomit or stool or other concerns as needed. Scripts Dicyclomine HCl (Dicyclomine HCl) 20 Mg Tablet 20 MG PO ACHS Y for ABDOMINAL PAIN, #30 TAB 0 Refills Prov: DENIZ ROQUE MD 06/05/17 DENIZ ROQUE MD Jun 05, 2017 20:09
[2017-06-05 20:33] LABS: BASOPHILS % (AUTO) 0 % (0-10); EOSINOPHILS # (AUTO) 0.1 10^3/uL (0.0-0.3); EOSINOPHILS % (AUTO) 1 % (0-10); LYMPHOCYTES # (AUTO) 1.8 X 10^3 (1.0-4.0); LYMPHOCYTES % (AUTO) 20 % (12-44); MEAN CORPUSCULAR HEMOGLOBIN 30 PG (25-34); MEAN CORPUSCULAR HGB CONC 33 G/DL (32-36); MEAN CORPUSCULAR VOLUME 89 FL (80-99); MEAN PLATELET VOLUME 10.3 FL (7.4-10.4); MONOCYTES # (AUTO) 0.6 X 10^3 (0.0-1.0); MONOCYTES % (AUTO) 7 % (0-12); NEUTROPHILS # (AUTO) 6.5 X 10^3 (1.8-7.8); NEUTROPHILS % (AUTO) 72 % (42-75); PLATELET COUNT 211 10^3/uL (130-400); RED BLOOD COUNT 4.74 10^6/uL (4.35-5.85); RED CELL DISTRIBUTION WIDTH 13.4 % (10.0-14.5)
[2017-06-05 20:54] LABS: ALANINE AMINOTRANSFERASE 15 U/L (0-55); ALBUMIN 4.4 GM/DL (3.2-4.5); AMYLASE 28 U/L (25-125); ANION GAP 13 MMOL/L (5-14); ASPARTATE AMINO TRANSFERASE 24 U/L (5-34); BILIRUBIN,TOTAL 0.6 MG/DL (0.1-1.0); BLOOD UREA NITROGEN 14 MG/DL (7-18); BUN/CREATININE RATIO 18; CALCIUM 9.5 MG/DL (8.5-10.1); CARBON DIOXIDE 19 MMOL/L (21-32); CHLORIDE 106 MMOL/L (98-107); CREATININE SERUM 0.78 MG/DL (0.60-1.30); GFR ESTIMATED > 60; GLUCOSE 93 MG/DL (70-105); LIPASE 19 U/L (8-78); POTASSIUM 4.2 MMOL/L (3.6-5.0); SODIUM 138 MMOL/L (135-145); TOTAL PROTEIN 8.1 GM/DL (6.4-8.2)
[2017-06-05] MEDS ORDERED: HYOSCYAMINE 0.125 MG (LEVSIN) TAB ONE (20:55)
[2017-06-05] MEDS ORDERED: DICY20TA10 PO (21:19)
[2017-06-05 21:47] VITALS: BP 112/86
== END 2017-06-05 21:46 | disposition home or self-care (01) ==
LOC: EDUNIT# 19:23 → ER 19:25
DX: R10.12 Left upper quadrant pain (principal); R10.31 Right lower quadrant pain; R10.32 Left lower quadrant pain; Z87.81 Personal history of (healed) traumatic fracture
CPT/HCPCS: 36415; 80053; 81000; 82150; 83690; 84703; 85025; 99283

== ENCOUNTER 2017-07-09 09:10 | Emergency (ER) | payer SELFPAY ==
[~2017-07-09] VITALS: Ht 154.9 cm; Wt 49.9 kg
[~2017-07-09 09:10] MED LIST changes: +DICY20TA10 PO
--- NOTE | 2017-07-09 09:33 | ED Integumentary General ---
General Chief Complaint: Skin/Wound Problems Stated Complaint: "BUBBLE" ON L NIPPLE DRAINING Source: patient Exam Limitations: no limitations History of Present Illness Time seen by provider: 09:28 Initial Comments This 22-year-old white female presents with a history of a persistent mass beneath her left nipple for the last 6 months. Mass became tender and the nipple began draining purulent material several days ago. The patient was seen at [facility] and placed on antibiotics. The name of the antibiotic is unclear. The patient was rescheduled for a mammogram but this has not occurred. Patient denies associated trauma to the left breast, fever, axillary adenopathy , associated cough or shortness of breath, similar episode in the past, other area of skin abscess or induration, or remarkable past medical history contributory to the present illness. Patient states that the left breast is moderately tender with dull ache without radiation. Allergies and Home Medications Allergies Coded Allergies: NKANo Known Allergies (Verified Allergy, Unknown, 06/05/17) Constitutional: No chills, No fever EENTM: No hearing loss Respiratory: No cough Cardiovascular: No chest pain Gastrointestinal: No abdominal pain, No nausea Genitourinary: no symptoms reported Musculoskeletal: no symptoms reported Skin: see HPI, other (. No drainage from the left nipple. Tender mass beneath the left nipple.) Psychiatric/Neurological: No Symptoms Reported Endocrine: No Symptoms Reported Hematologic/Lymphatic: No Symptoms Reported Past Hbcejyn-Svqizk-Pmqrlj Hx Patient Social History Alcohol Use: Occasionally Uses Recreational Drug Use: No Smoking Status: Never a Smoker Recent Foreign Travel: No Contact w/Someone Who Travel: No Surgeries History of Surgeries: Yes (broken right arm, URETHRAL STRETCH ) Surgeries: Orthopedic Respiratory History of Respiratory Disorde: No Cardiovascular History of Cardiac Disorders: No Neurological History of Neurological Disord: No Reproductive System Hx Reproductive Disorders: No Female Reproductive Disorders: Denies Genitourinary History of Genitourinary Disor: Yes (UTI's) Gastrointestinal History of Gastrointestinal Di: No Musculoskeletal History of Musculoskeletal Dis: No Endocrine History of Endocrine Disorders: No Cancer History of Cancer: No Psychosocial History of Psychiatric Problem: No Blood Transfusions History of Blood Disorders: No Reviewed Nursing Assessment Reviewed/Agree w Nursing PMH: Yes Family Medical History Significant Family History: No Pertinent Family Hx Physical Exam Vital Signs Capillary Refill : General Appearance: WD/WN, no apparent distress HEENT: normal ENT inspection Neck: supple, normal inspection Cardiovascular: regular rate, rhythm, no murmur Respiratory: lungs clear, no accessory muscle use Gastrointestinal: normal bowel sounds, non tender Back: normal inspection Extremities: normal range of motion Neurologic/Psychiatric: no motor/sensory deficits, alert Skin: other (there is a small amount of purulent drainage from left nipple which was cultured. There is mild tenderness to palpation of the left nipple. There is a slight fullness beneath the left nipple but no definite mass or cystic structure is identified. There is no diffuse mastitis present. There is no left axillary adenopathy.) Skin Problem Location: other (left nipple) Skin Problem Character: lesion Progress/Results/Core Measures Results/Orders My Orders Orders - ANA OLGUIN MD Wound Culture (07/09/17 09:26) Progress Note : Time: 09:33 Progress Note After the culture was obtained from the discharge from the left nipple a Neosporin gauze dressing was applied. A discussion was undertaken with the patient and her friend. It was recommended that a close follow-up for mammography, follow-up of the culture and sensitivity from left nipple, and initiation of Bactrim and Augmentin. ( The patient has been on her antibiotic from [facility] for the last 3-4 days without improvement). We called [facility] and the patient had been placed on clindamycin 300 mg twice a day. Also the patient with a prescription for outpatient mammography. I want her to continue with the Augmentin and the Bactrim until we have results from the culture of the left breast drainage and sensitivities. I recommended warm packs to the left breast. I asked that she return the emergency Department or [facility] if she had any further problems or questions. Departure Impression Impression: Primary Impression: Abscess Disposition: 01 HOME, SELF-CARE Condition: Improved Departure-Patient Inst. Decision time for Depature: 09:40 Referrals: [facility] (PCP/Family) Primary Care Physician Patient Instructions: Cellulitis (Skin Infection), Adult (DC) Add. Discharge Instructions: Stop the clindamycin. Initiate Bactrim and Augmentin as prescribed. Warm packs to the left breast. Present for mammogram scheduling on Tuesday morning. Return if any problems or questions. All discharge instructions reviewed with patient and/or family. Voiced understanding. ANA OLGUIN MD Jul 09, 2017 09:33
[2017-07-09] MEDS ORDERED: CLEOCIN (09:42)
[2017-07-09 09:44] VITALS: BP 102/64
== END 2017-07-09 09:44 | disposition home or self-care (01) ==
LOC: EDUNIT# 09:10 → ER 09:11
DX: N61.1 Abscess of the breast and nipple (principal); Z87.442 Personal history of urinary calculi; Z87.81 Personal history of (healed) traumatic fracture
CPT/HCPCS: 87070; 87205; 99282

== ENCOUNTER 2020-08-01 11:15 | Emergency (ER) | payer SELFPAY ==
[~2020-08-01] VITALS: Ht 157 cm; Wt 45.0 kg
[~2020-08-01 11:15] MED LIST changes: +ACHD5005 PO; +CLEOCIN; -HYDR-3812 PO
[2020-08-01 11:18] VITALS: BP 108/75
[2020-08-01] MEDS ORDERED: SULF1TAB35 PO (11:44)
[2020-08-01] MEDS ORDERED: CEPH500T PO (11:44)
[2020-08-01] MEDS ORDERED: FLUC150T PO (11:44)
--- NOTE | 2020-08-01 11:44 | ED Lower Extremity ---
General Chief Complaint: Lower Extremity Stated Complaint: R BIG TOE SWOLLEN Nursing Triage Note: PT CO OF R GREAT TOE PAIN, PT STATES WORKS AT [employer] AND STANDS IN WATER. TOE HAS REDNESS ON UNDER SIDE WITH SKIN REDDEND Nursing Sepsis Screen: No Definite Risk Source: patient Exam Limitations: no limitations History of Present Illness Date Seen by Provider: Aug 01, 2020 Time Seen by Provider: 11:40 Initial Comments To ER with redness and swelling over the medial aspect of the right great toe. 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 Onset: last week Severity: moderate Pain/Injury Location: right 1st toe Modifying Factors: Worse With Movement Allergies and Home Medications Allergies Coded Allergies: NKANo Known Allergies (Verified Allergy, Unknown, 06/05/17) Home Medications Cephalexin 500 Mg Tablet, 500 MG PO QID Prescribed by: CONCHIS HOLCOMB on 08/01/20 1144 Fluconazole 150 Mg Tablet, 150 MG PO DAILY Prescribed by: CONCHIS HOLCOMB on 08/01/20 1144 Sulfamethoxazole/Trimethoprim 1 Each Tablet, 1 EACH PO BID Prescribed by: CONCHIS HOLCOMB on 08/01/20 1144 Patient Home Medication List Home Medication List Reviewed: Yes Review of Systems Constitutional: see HPI EENTM: see HPI Respiratory: no symptoms reported Cardiovascular: no symptoms reported Genitourinary: no symptoms reported Musculoskeletal: see HPI Skin: see HPI Psychiatric/Neurological: No Symptoms Reported Past Goktcks-Ygemnc-Vopcvc Hx Patient Social History Alcohol Use: Occasionally Uses Recreational Drug Use: Yes (POT) Smoking Status: Current Everyday Smoker Type Used: Cigarettes Recent Foreign Travel: No Contact w/Someone Who Travel: No Recent Infectious Disease Expo: No Recent Hopitalizations: No Physical Abuse: No Sexual Abuse: No Past Medical History Surgeries: Yes (broken right arm, URETHRAL STRETCH ) Orthopedic Respiratory: No Cardiac: No Neurological: No Reproductive Disorders: No Female Reproductive Disorders: Denies Genitourinary: Yes (UTI's) Gastrointestinal: No Musculoskeletal: No Endocrine: No Cancer: No Psychosocial: No Blood Disorders: No Family Medical History No Pertinent Family Hx Physical Exam Vital Signs Vital Signs - First Documented 08/01/20 11:18 Temp 36.8 Pulse 63 Resp 18 B/P (MAP) 108/75 (86) Pulse Ox 98 Capillary Refill : Less Than 3 Seconds Height, Weight, BMI Height: 5'1.00" Weight: 110lbs. 8.0oz. [id number]; 18.00 BMI Method:Stated General Appearance: WD/WN, no apparent distress Respiratory: normal breath sounds, no respiratory distress, no accessory muscle use Hips: bilateral hip non-tender, bilateral hip normal inspection, bilateral hip normal range of motion Legs: bilateral leg non-tender, bilateral leg normal inspection, bilateral leg normal range of motion Knees: bilateral knee non-tender, bilateral knee normal inspection, bilateral knee normal range of motion Ankles: bilateral ankle non-tender, bilateral ankle normal inspection, bilateral ankle normal range of motion Feet: right foot other (There is some erythema as well as maceration to the plantar surface of the medial aspect of the right great toe. The medial aspect of the distal toenail of the great toe on the right is also becoming ingrown. She is not real enthusiastic about removing the that section of the toenail yet so we will try antibiotics first.) Neurologic/Psychiatric: alert, normal mood/affect, oriented x 3 Skin: normal color, warm/dry Progress/Results/Core Measures Results/Orders Vital Signs/I&O 08/01/20 11:18 Temp 36.8 Pulse 63 Resp 18 B/P (MAP) 108/75 (86) Pulse Ox 98 Blood Pressure Mean: 86 Departure Impression Primary Impression: Ingrown toenail Additional Impression: Soft tissue infection Disposition: 01 HOME, SELF-CARE Condition: Stable Departure-Patient Inst. Decision time for Depature: 11:42 Referrals: [facility] (PCP/Family) Primary Care Physician Patient Instructions: Ingrown Toenail, Wound Infection Add. Discharge Instructions: 1. Is very important to keep this clean and dry. You can shower and let water run over it but then make sure it is dry. Wear the special shoe given to you in the emergency room for 1 week. Do not let any water come into contact with this while at work. If this antibiotic fails to improve your symptoms then return in about 1 week (return to ER sooner than that if it becomes worse) and we will need to remove about 1/4 inch of the inside of that toenail. Follow-up with your doctor next week for recheck. I sent in 2 medications both of them antibio tics. 1 is cephalexin and the other is trimethoprim/sulfamethoxazole. I sent in a third medication called Diflucan (fluconazole) in case these antibiotics cause a yeast infection. Take 1 of these pills daily for 2 days if you develop a yeast infection All discharge instructions reviewed with patient and/or family. Voiced understanding. Scripts Fluconazole (Diflucan) 150 Mg Tablet 150 MG PO DAILY, #2 TAB Prov: CONCHIS HOLCOMB APRN 08/01/20 Sulfamethoxazole/Trimethoprim (Bactrim Ds Tablet) 1 Each Tablet 1 EACH PO BID, #14 TAB Prov: CONCHIS HOLCOMB APRN 08/01/20 Cephalexin (Cephalexin) 500 Mg Tablet 500 MG PO QID, #28 TAB 0 Refills Prov: CONCHIS HOLCOMB APRN 08/01/20 CONCHIS HOLCOMB APRN Aug 01, 2020 11:44
== END 2020-08-01 11:59 | disposition home or self-care (01) ==
LOC: EDUNIT# 11:15 → ER 11:17
DX: L60.0 Ingrowing nail (principal); L08.9 Local infection of the skin and subcutaneous tissue, unspecified; F17.210 Nicotine dependence, cigarettes, uncomplicated
CPT/HCPCS: 99283

== ENCOUNTER 2020-08-09 16:22 | Emergency (ER) | payer SELFPAY ==
[~2020-08-09] VITALS: Ht 157 cm; Wt 45.0 kg
[~2020-08-09 16:22] MED LIST changes: +CEPH500T PO; +FLUC150T PO
--- NOTE | 2020-08-09 16:30 | NUR ---
NOTIFIED OF BUSY ER WITH LONG WAIT TO SEE A PROVIDER.
--- NOTE | 2020-08-09 17:37 | NUR ---
RESTING IN BED. NOTIFIED AGAIN OF BUSY ER AND THAT A PROVIDER WOULD BE IN WHEN AVAILABLE.
--- NOTE | 2020-08-09 18:58 | NUR ---
REPORT GIVEN TO LINDA
[2020-08-09] MEDS ORDERED: TRIM/SULFAMETH 160/800 (SEPTRA DS) TAB PO ONE ×2 (19:00→19:10)
[2020-08-09] MEDS ORDERED: SULF1TAB35 PO (19:02)
[2020-08-09] MEDS ORDERED: FLUC150T PO (19:02)
--- NOTE | 2020-08-09 19:06 | ED Lower Extremity ---
General Chief Complaint: Lower Extremity Stated Complaint: R FOOT PAIN Nursing Triage Note: ARRIVED VIA AMB TO [facility]. STATES SHE WAS HERE LAST WEEK FOR A RIGHT GREAT INGROWN TOE NAIL THAT IS NOT GETTING BETTER. Nursing Sepsis Screen: No Definite Risk Source: patient Exam Limitations: no limitations History of Present Illness Date Seen by Provider: Aug 09, 2020 Time Seen by Provider: 18:50 Initial Comments This 25-year-old young lady presents to the emergency room with complaints of pain, erythema, and tenderness to the right great toe. She was seen here previously for the same thing and prescribed a combination of Keflex, Bactrim, and a Diflucan. Symptoms have improved but are still present. She comes today inquiring about toenail removal. 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 Allergies and Home Medications Allergies Coded Allergies: ANDREWMarita Known Allergies (Verified Allergy, Unknown, 06/05/17) Home Medications Cephalexin 500 Mg Tablet, 500 MG PO QID Prescribed by: CONCHIS HOLCOMB on 08/01/20 1144 Fluconazole 150 Mg Tablet, 150 MG PO DAILY Prescribed by: CONCHIS HOLCOMB on 08/01/20 1144 Fluconazole 150 Mg Tablet, 150 MG PO UD Take 1 tablet now. Repeat in 3 or 4 days. Prescribed by: DARYN MCGREGOR on 08/09/20 190 Sulfamethoxazole/Trimethoprim 1 Each Tablet, 1 EACH PO BID Prescribed by: CONCHIS HOLCOMB on 08/01/20 1144 Sulfamethoxazole/Trimethoprim 1 Each Tablet, 1 EACH PO BID Prescribed by: DARYN MCGREGOR on 08/09/20 190 Patient Home Medication List Home Medication List Reviewed: Yes Review of Systems Constitutional: no symptoms reported : No Musculoskeletal: no symptoms reported Skin: see HPI Psychiatric/Neurological: No Symptoms Reported Past Xujbjup-Liiutl-Bmyaao Hx Past Med/Social Hx: Reviewed Nursing Past Med/Soc Hx Patient Social History Alcohol Use: Occasionally Uses Recreational Drug Use: Yes (POT) Smoking Status: Current Everyday Smoker Type Used: Cigarettes Recent Foreign Travel: No Contact w/Someone Who Travel: No Recent Infectious Disease Expo: No Recent Hopitalizations: No Past Medical History Surgeries: Yes (broken right arm, URETHRAL STRETCH ) Orthopedic Respiratory: No Cardiac: No Neurological: No Reproductive Disorders: No Female Reproductive Disorders: Denies Genitourinary: Yes (UTI's) Gastrointestinal: No Musculoskeletal: No Endocrine: No Cancer: No Psychosocial: No Blood Disorders: No Family Medical History No Pertinent Family Hx Physical Exam Vital Signs Vital Signs - First Documented 08/09/20 16:30 Temp 36.9 Pulse 88 Resp 16 B/P (MAP) 132/79 (96) Pulse Ox 99 O2 Delivery Room Air Capillary Refill : Less Than 3 Seconds Height, Weight, BMI Height: 5'1.00" Weight: 110lbs. 8.0oz. [id number]; 18.00 BMI Method:Stated General Appearance: WD/WN, no apparent distress HEENT: normal ENT inspection Cardiovascular: regular rate, rhythm, no edema, no murmur Respiratory: lungs clear, normal breath sounds, no respiratory distress Feet: right foot other (Right great toe is mildly erythematous and tender. Skin has a wrinkled appearance as though swelling has decreased significantly. There is a thick callus layer of skin over much of the toe that is cracking. There is no fluctuance to suggest abscess. There is Minimal skin tissue overlying the toe edge. No purulent drainage.) Progress/Results/Core Measures Results/Orders My Orders Orders - DARYN ALMANZA MD Sulfamethoxazole/Trimet Ds Tab (Bactrim (08/09/20 19:00) Sulfamethoxazole/Trimet Ds Tab (Bactrim (08/09/20 19:10) Vital Signs/I&O 08/09/20 08/09/20 16:30 19:14 Temp 36.9 Pulse 88 88 Resp 16 17 B/P (MAP) 132/79 (96) 119/69 Pulse Ox 99 100 O2 Delivery Room Air Room Air Blood Pressure Mean: 96 Progress Progress Note : Progress Note The toe appears to be improving. We added a week more of antibiotic therapy. I described performing Epson salt soaks. Diflucan was added as well to cover for concurrent possible fungal infection. See discharge instructions. Departure Impression Primary Impression: Cellulitis of great toe, left Additional Impression: Ingrown toenail Disposition: HOME, SELF-CARE Condition: Improved Departure-Patient Inst. Referrals: [facility] (PCP/Family) Primary Care Physician Patient Instructions: Cellulitis (Skin Infection), Adult (DC), Ingrown Toenail (DC) Add. Discharge Instructions: Complete your antibiotics as prescribed. You may do Epson salt soaks on your foot 1 or 2 times a day for about 10 or 15 minutes until the nail grows out past the fold of the skin. Do not trim your toenail past the fold of the skin as this will further perpetuate ingrown toenails. Ensure you wear shoes with plenty of room in the toe so that pressure is not placed on the tip or edge of the toe. If you are still having significant trouble after an additional week of treatment, follow-up with your primary care office for a possible partial to[place] removal. Your skin appears to be healing from infection. The callused skin will eventually slough off. Other than Epson salt soaks, keep your feet as dry as possible and open to air if possible. Change socks often. You may even bring extra pairs of socks to work with you and change socks during breaks. Return to the emergency room or your primary care office if you have worsening symptoms. All discharge instructions reviewed with patient and/or family. Voiced understanding. Scripts Fluconazole (Diflucan) 150 Mg Tablet 150 MG PO UD, #2 TAB Take 1 tablet now. Repeat in 3 or 4 days. Prov: DARYN ALMANZA MD 08/09/20 Sulfamethoxazole/Trimethoprim (Bactrim Ds Tablet) 1 Each Tablet 1 EACH PO BID, #14 TAB Prov: DARYN ALMANZA MD 08/09/20 Work/School Note: Work Release Form Date Seen in the Emergency Department: Aug 09, 2020 Return to Work: Aug 10, 2020 Restrictions: No Restrictions DARYN ALMANZA MD Aug 09, 2020 19:06
[2020-08-09 19:14] VITALS: BP 119/69
== END 2020-08-09 19:14 | disposition home or self-care (01) ==
LOC: EDUNIT# 16:22 → ER 16:23
DX: L03.031 Cellulitis of right toe (principal); L60.0 Ingrowing nail; F17.210 Nicotine dependence, cigarettes, uncomplicated
CPT/HCPCS: 99283

== ENCOUNTER 2022-02-10 14:09 | Emergency (ER) | payer SELFPAY ==
[~2022-02-10] VITALS: Ht 157.5 cm; Wt 44.0 kg
[~2022-02-10 14:09] MED LIST changes: +DICY20TA PO; -DICY20TA10 PO; -SULF1TAB35 PO; +SULF1TAB38 PO
--- NOTE | 2022-02-10 14:59 | ED Integumentary General ---
General Chief Complaint: Bite-Animal/Human/Insect Stated Complaint: R HAND DOG BITE Nursing Triage Note: PT TO ED BY POV WITH C/O DOG BITE. PT REPORTS SHE BROKE UP A FIGHT BETWEEN HER TWO HUSKIES AND ONE BIT HER R HAND. REPORTS MINIMAL PAIN AT THIS TIME. Source: patient Exam Limitations: no limitations History of Present Illness Date Seen by Provider: Feb 10, 2022 Time Seen by Provider: 14:48 Initial Comments This is a well-appearing 26-year-old female who presented to the ER via POV with complaints of dog bite to her right hand. States that she has 2 Siberian husky's and they were fighting, she reached down to pull them apart and she was bit one of her dogs. States that her dogs are up-to-date on immunizations and rabies. Unknown last tetanus. Allergies and Home Medications Allergies Coded Allergies: ANDREWANo Known Allergies (Verified Allergy, Unknown, 06/05/17) Patient Home Medication List Cephalexin (Cephalexin) 500 Mg Tablet, 500 MG PO QID Prescribed by: CONCHIS HOLCOMB on 08/01/20 1144 Fluconazole (Diflucan) 150 Mg Tablet, 150 MG PO DAILY Prescribed by: CONCHIS HOLCOMB on 08/01/20 1144 Fluconazole (Diflucan) 150 Mg Tablet, 150 MG PO UD Prescribed by: DARYN MCGREGOR on 08/09/201901 Sulfamethoxazole/Trimethoprim (Bactrim Ds Tablet) 1 Each Tablet, 1 EACH PO BID Prescribed by: CONCHIS HOLCOMB on 08/01/20 1144 Sulfamethoxazole/Trimethoprim (Bactrim Ds Tablet) 1 Each Tablet, 1 EACH PO BID Prescribed by: DARYN MCGREGOR on 08/09/201901 Past Mspkjgz-Wzbflq-Cignnh Hx Patient Social History Tobacco Use?: Yes Tobacco type used: Cigarettes Smoking Status: Current Everyday Smoker Substance use?: Yes Substance type: Marijuana Substance frequency: Daily Alcohol Use?: Yes Alcohol type: Hard Liquor Alcohol Frequency: Daily Pt feels they are or have been: No Immunizations Up To Date Influenza Vaccine Up-to-Date: No; Not Current First/Initial COVID19 Vaccinat: N/A Past Medical History Surgeries: Yes (broken right arm, URETHRAL STRETCH ) Orthopedic Respiratory: No Cardiac: No Neurological: No Reproductive Disorders: No Female Reproductive Disorders: Denies Genitourinary: Yes (UTI's) Gastrointestinal: No Musculoskeletal: No Endocrine: No Cancer: No Psychosocial: No Blood Disorders: No Family Medical History No Pertinent Family Hx Physical Exam Vital Signs Vital Signs - First Documented 02/10/22 14:22 Temp 37.0 Pulse 87 Resp 16 B/P (MAP) 120/84 (96) Pulse Ox 99 O2 Delivery Room Air Capillary Refill : Less Than 3 Seconds Progress/Results/Core Measures Results/Orders My Orders Orders - BUSHRA PENA [employer] Dipht,Pertuss(Acell),Tet Adult (Boostrix (02/10/22 15:00) Lidocaine 1% Inj 20 Ml (Xylocaine 1% Inj (02/10/22 15:00) Amoxicillin/Clavulanate Tablet (Augmenti (02/10/22 15:00) Medications Given in ED Current Medications Medications Dose Ordered Sig/Blake Route Start Time Stop Time Status Last Admin Dose Admin Amoxicillin/ Clavulanate Potassium 875 mg ONCE ONCE PO 02/10/22 15:00 02/10/22 15:01 DC 02/10/22 15:15 875 MG Diphtheria/ Tetanus/Acell Pertussis 0.5 ml ONCE ONCE IM 02/10/22 15:00 02/10/22 15:01 DC 02/10/22 15:17 0.5 ML Vital Signs/I&O 02/10/22 14:22 Temp 37.0 Pulse 87 Resp 16 B/P (MAP) 120/84 (96) Pulse Ox 99 O2 Delivery Room Air Blood Pressure Mean: 96 Departure Impression Primary Impression: Dog bite Disposition: 01 HOME, SELF-CARE Condition: Improved Departure-Patient Inst. Decision time for Depature: 16:06 Referrals: [facility] (PCP/Family) Primary Care Physician Patient Instructions: Animal Bites (DC) Add. Discharge Instructions: Plan: 1. Take Augmentin twice a day as directed and complete full course. Monitor for signs of infection: redness, streaking, fevers, purulent drainage, increased pain. 2. Wash hands gently with mild soap and water, pat dry, cover with xeroform and dry dressing for 2 days. Then you can leave open to air. 3. Cover remaining small punctures with simple bandaid for a couple days, then leave open to air. 4. No soaking hand or swimming while sutures intact. Return in 7-10 days for suture removal of your 2 sutures. 5. Your tetanus was updated today. You may have some soreness at the injection site. 6. Return for any new, concerning, or worsening symptoms. All discharge instructions reviewed with patient and/or family. Voiced understanding. Scripts Amoxicillin/Potassium Clav (Amox Tr-K Clv 875-125 mg Tab) 875 Mg-125 Mg Tablet 1 EACH PO BID for 7 Days, #14 TAB 0 Refills Prov: BUSHRA PENA APRN 02/10/22 BUSHRA PENA APRN Feb 10, 2022 14:59
[2022-02-10] MEDS ORDERED: TETANUS,DIPTH,PERTUSS P/F (BOOSTRIX) 0.5 ML VIAL IM ONE (15:00)
[2022-02-10] MEDS ORDERED: LIDOCAINE 1% INJ 20 ML VIAL INJ ONE (15:00)
[2022-02-10] MEDS ORDERED: AUGMENTIN 875 MG TAB (AMOXICILLIN/CLAVULANATE) PO ONE (15:00)
[2022-02-10] MEDS ORDERED: AMOX1TAB12 PO (16:13)
[2022-02-10 16:20] VITALS: BP 114/77
== END 2022-02-10 16:19 | disposition home or self-care (01) ==
LOC: EDUNIT# 14:09 → ER 14:11
DX: S61.451A Open bite of right hand, initial encounter (principal); F17.210 Nicotine dependence, cigarettes, uncomplicated; Z98.890 Other specified postprocedural states; Z23 Encounter for immunization; W54.0XXA Bitten by dog, initial encounter
CPT/HCPCS: 90715; 99284

== ENCOUNTER 2022-02-20 12:17 | Emergency (ER) | payer SELFPAY ==
[~2022-02-20] VITALS: Ht 157.4 cm; Wt 44.5 kg
[~2022-02-20 12:17] MED LIST changes: +AMOX1TAB12 PO
== END 2022-02-20 12:36 | disposition home or self-care (01) ==
LOC: EDUNIT# 12:17 → ER 12:19
DX: Z48.02 Encounter for removal of sutures (principal)